=== PATIENT | female | born 1965 | race Asian ===

== ENCOUNTER 2017-10-14 01:02 | Emergency (ER) | payer OTHER ==
[~2017-10-14] VITALS: Ht 149.9 cm; Wt 63.0 kg
[2017-10-14] MEDS ORDERED: METF500T6 PO (01:06)
[2017-10-14] MEDS ORDERED: CHOL50004 PO (01:06)
[2017-10-14 03:30] VITALS: BP 138/89
== END 2017-10-14 03:46 | disposition home or self-care (01) ==
LOC: EMS 01:02
DX: S29.012A Strain of muscle and tendon of back wall of thorax, initial encounter (principal); E11.9 Type 2 diabetes mellitus without complications; Z79.84 Long term (current) use of oral hypoglycemic drugs; X58.XXXA Exposure to other specified factors, initial encounter; Y93.89 Activity, other specified; Y92.89 Other specified places as the place of occurrence of the external cause; Y99.8 Other external cause status
CPT/HCPCS: 93005; 99283

== ENCOUNTER 2021-09-29 10:50 | Emergency (ER) | payer OTHER ==
[~2021-09-29] VITALS: Ht 149.9 cm; Wt 61.4 kg
[~2021-09-29 10:50] MED LIST: CHOL500013 PO; METF-1211 PO
[2021-09-29 10:57] VITALS: BP 134/73
[2021-09-29] MEDS ORDERED: ACETAMINOPHEN 500 MG TABLET PO ONE (12:00)
[2021-09-29] MEDS ORDERED: KETOROLAC TROMETHAMINE 60 MG/2 ML VIAL IM ONE (12:15)
[2021-09-29] MEDS ORDERED: CYCL-397 PO ×2 (15:27→15:52)
== END 2021-09-29 15:53 | disposition home or self-care (01) ==
LOC: EMS 10:56
DX: M54.2 Cervicalgia (principal); M54.50 Low back pain, unspecified; M25.512 Pain in left shoulder; M62.838 Other muscle spasm; J45.909 Unspecified asthma, uncomplicated; E11.9 Type 2 diabetes mellitus without complications; I10 Essential (primary) hypertension; Z79.84 Long term (current) use of oral hypoglycemic drugs; V49.9XXA Car occupant (driver) (passenger) injured in unspecified traffic accident, initial encounter; Y93.89 Activity, other specified; Y92.488 Other paved roadways as the place of occurrence of the external cause; Y99.8 Other external cause status
CPT/HCPCS: 72040; 72070; 72100; 82962; 96372; 99284; J1885